=== PATIENT | male | born 1990 | race Caucasian/White ===

== ENCOUNTER 2021-06-08 18:07 | Outpatient (REF) | payer MEDICAID, SELFPAY ==
[2021-06-08 20:17] LABS: HCT 44.8 % (40.0-50.0); HGB 15.7 g/dL (13.5-17.5); MCV 85.7 fL (80-95); MPV 11.8 fL (8.0-11.0); Platelet Count 239 10^3/uL (130-400); RBC 5.23 10^6/uL (4.36-5.78); RDW 11.9 % (11.8-14.1); RDW-SD 37.8 fL; WBC 7.22 10^3/uL (4.4-10.8)
[2021-06-08 20:33] LABS: ALT 46 U/L (16-63); AST 24 U/L (15-37); Albumin 4.3 g/dL (3.4-5.0); Alkaline Phosphatase 107 U/L (46-116); Anion Gap 11.3 mmol/L (3-11); BUN 20 mg/dL (7-18); Bilirubin, Total 1.6 mg/dL (0.2-1.0); CO2 24.7 mmol/L (21.0-32.0); CREATININE 1.2 mg/dL (0.70-1.30); Calcium 9.2 mg/dL (8.5-10.1); Chloride 103 mmol/L (98-107); Glucose 81 mg/dL (74-106); Lipase 59 U/L (73-393); Potassium 4.1 mmol/L (3.5-5.1); Sodium 139 mmol/L (136-145); Total Protein 7.6 g/dL (6.4-8.2)
[2021-06-08 20:46] LABS: Amylase 56 U/L (25-115)
== END 2021-06-08 18:08 | disposition home or self-care (01) ==
LOC: LBN 18:07
PROVIDERS: Visit Provider Nurse Practitioner Family
DX: K21.9 Gastro-esophageal reflux disease without esophagitis (principal); R63.4 Abnormal weight loss
CPT/HCPCS: 80053; 83690; 85027; 82150; 84443

== ENCOUNTER 2021-06-12 13:22 | Outpatient (REF) | payer MEDICAID, SELFPAY ==
[2021-06-14 16:04] LABS: Helicobacter pylori Ag, Feces Negative (Negative)
== END 2021-06-12 13:23 | disposition home or self-care (01) ==
LOC: LBN 13:22
PROVIDERS: Visit Provider Nurse Practitioner Family
DX: K21.9 Gastro-esophageal reflux disease without esophagitis (principal)
CPT/HCPCS: 87338

== ENCOUNTER 2021-07-09 03:18 | Outpatient (CLI) | payer MEDICAID, SELFPAY ==
[2021-07-09 11:40] LABS: Source Nasal/Nares
[2021-07-09 14:14] LABS: COVID-19 PCR Negative (Negative)
== END 2021-07-09 03:19 | disposition home or self-care (01) ==
LOC: LBO 03:18
PROVIDERS: Visit Provider Surgery
DX: Z20.822 Contact with and (suspected) exposure to COVID-19 (principal)
CPT/HCPCS: 87635

== ENCOUNTER 2021-07-12 09:24 | Day surgery (SDC) | payer MEDICAID, SELFPAY ==
--- NOTE | 2021-07-12 07:09 | ENDO_ITS ---
Date of service: 07/12/21 Time of Service: 11:57 Endoscopy Report DATE OF PROCEDURE: 07/12/21 PRE-OP DIAGNOSIS: Abdominal pain POST-OP DIAGNOSIS: other (bile reflux gastritis) PROCEDURE: EGD with biopsies SURGEON: Anitha Rios ANESTHESIA TYPE: General:No Airway ESTIMATED BLOOD LOSS: 2 PATHOLOGY: other (duodenum, gastric and GE junction bx) COMPLICATIONS: None DISPOSITION: same day INDICATIONS: Twan is a pleasant 31-year-old gentleman who started having bloating and indigestion type symptoms after taking antibiotics for an infected tooth.? He also started having some irregular bowel movements with a lot of constipation.? He has been changing his diet a lot going from vegan to more meat again and I think that is part of his constipation issue.? I recommend that he start a probiotic to see if we can get his bowel movements back to normal.? I also recommend an upper endoscopy to look for inflammation, ulcers or H. pylori.? He did say that he had a stool study done looking for H. pylori which was negative .? The procedure was explained in detail as well as the risks and complications.? His questions were answered to his satisfaction and he wished to proceed. Proceed with EGD under sedation FINDINGS: bile reflux and gastritis PROCEDURE DESCRIPTION: After informed consent was obtained the patient was take to the procedure room and placed in a supine position. Monitors were applied and a time out was done. The patients name, date of , procedure type, allergies to medications and metal in their body was reviewed. A bite block was placed and the patient was sedated. Once sedated and comfortable the gastroscope was advanced through the oropharynx which was grossly normal into the esophagus. The proximal and mid- esophagus were normal. In the distal esophagus there was no inflammation noted. The scope was advanced into the stomach and through the pylorus into the 3rd portion of the duodenum. The duodenum was noted to be normal. Biopsies were done to rule out celiac. The scope was retracted back into the stomach and biopsies were done to rule out H. pylori. There were no ulcers. Significant Bile reflux was noted. The scope was retroflexed. The cardia and fundus were noted to be normal. There was no hiatal hernia noted. The scope was retracted back into the esophagus and biopsies were done of the GE junction to rule out Hubbard's. The Z line was regular. The GE junction was at 40 cm. The scope was removed and the patient was woken up and taken back to [facility] in stable condition. Follow up: 2 weeks. Start carafate
--- NOTE | 2021-07-12 07:10 | PDOC.DSDIS_ITS ---
Discharge Plan Disposition Patient Disposition: HOME Condition: Good Discharge Details Reason For Visit: egd Attending Provider: Anitha Rios Primary Care Provider: None,None Home Meds and New Rx's Prescriptions: New sucralfate [Carafate] 1 gram tablet 1 g PO TID 30 Days Qty: 90 0RF Rx Instructions: Take 30 minutes before a meal Discharge Instructions Instructions: Gastritis (DC) Additional Instructions: Findings: inflammation in the stomach Follow up: 2 weeks Please call if you develop: fevers >101.5 Nausea or Vomiting Abdominal pain that is not transient Rectal bleeding that is more then a tbsp A hard abdomen and inability to pass gas DAY SURGERY UNIT POST ENDOSCOPY INSTRUCTIONS Instructions for everyone who is given Anesthesia: For your safety, please do the following for the next 24 Hours: a. Do not drive or operate dangerous equipment b. Do not drink alcohol beverages or use any recreational drugs for the first 24 hours or while taking pain medications. The medications in your body may have a reaction that can be dangerous. c. Do not make any important decisions or sign any important papers 1. Generally there are no restrictions on your activity after a day or so has gone by, but you may feel a bit fatigued for a few days. 2. After you arrive home you may have a light meal and return to a normal diet as you can tolerate it without feeling sick to your stomach. 3. After surgery, you may feel pain or discomfort. This should be only transient, but if it persists please contact your doctor. 4. If there are any questions regarding the findings of your procedure, please feel free to contact your doctor. 6. If you are unable to contact your doctor with a problem, contact the hospital at [phone]. 7. Continue all your regular medications unless directed otherwise. I understand the above instructions and have no questions. Signature of Patient or Responsible Adult Escort Date/Time Name of Responsible Adult Escort Signature of Nurse Date/Time Referrals: Anitha Rios MD [ [facility] STAFF PHYSICIAN] - 07/23/21 9:45 am Activity:: Activity as Tolerated Diet:: As Tolerated Discharge Orders Discharge Orders: Discharge Order (Routine); Ordered 07/12/21 Ordered By: Anitha Rios
[2021-07-12 10:06] VITALS: BP 121/75; PULSE 58; RESP 16; TEMP 36.3; O2SAT 98
[2021-07-12] MEDS: Lactated Ringers 1,000 ML 80 ML IV (10:28)
--- NOTE | 2021-07-12 11:02 | W.ANESPRE ---
General Info Date of Service Date Performed: 07/12/21 Height: 5 ft 10 in Weight: 78.471 kg Body Mass Index (BMI): 24.8 Surgical Procedure: Operation Date: 07/12/21 11:20 Proposed Procedure Side Surgeon p Gastroscopy Anitha Rios MD Meds Allergies and Home Medications Allergies Allergy/AdvReac Type Severity Reaction Status Date / Time Penicillins Allergy Intermediate Other (See Verified 07/08/21 15:29 Comment) Home Medication Medication Instructions Recorded Unknown [No Known Home Meds] 06/08/21 Current Visit Medications: Current Medications Generic Name Dose Route Start Last Admin Trade Name Freq PRN Reason Stop Dose Admin Hyoscyamine Sulfate 0.125 mg 07/12/21 07:11 Hyoscyamine 0.125 Mg Sl/Oral/Chew SL DIRECTED PRN Ringer's Solution 1,000 mls @ 80 mls/hr 07/12/21 06:00 07/12/21 10:28 IV 08/08/21 23:59 80 mls/hr INFUSION IBETH Administration IV Miscellaneous Supplies 1 each 07/12/21 06:00 Iv Access IV 08/08/21 23:59 DIRECTED IBETH Ondansetron HCl 4 mg 07/12/21 07:11 Ondansetron 4 Mg/2 Ml Vial IVP Q4H PRN PRN Nausea / Vomiting Sodium Chloride 0 ml 07/12/21 06:00 Normal Saline Flush 10 Ml Syr IV 08/08/21 23:59 PRN PRN Sodium Chloride 0 ml 07/12/21 06:00 Normal Saline 10 Ml Vial IJ 08/08/21 23:59 DIRECTED PRN Sterile Water 0 ml 07/12/21 06:00 Water,Injection,Sterile 10 Ml Vial IJ 08/08/21 23:59 DIRECTED PRN PFSH Active Problems Active Problems: Problem Status Onset Code Gastroesophageal reflux disease K21.9 Surgical History Surgical History History of ankle surgery No significant past surgical history Tobacco Smoking/Tobacco Use Status: Never Alcohol Alcohol Intake: never Substance Use Substance use: Never Substance use type: does not use Vital Signs and Lab Results Vital Signs Most Recent Vital Signs in EMR: Most Recent Vital Signs Temp Pulse Resp BP Pulse Ox 36.3 C L 58 L 16 121/75 98 07/12/21 10:06 07/12/21 10:06 07/12/21 10:06 07/12/21 10:06 07/12/21 10:06 Lab Results Blood Type / Crossmatch: No Data to Display Complete Blood Count: No Data to Display Complete Metabolic Panel: No Data to Display Liver Function Panel: No Data to Display Coagulation Panel: No Data to Display Cardiac Panel: No Data to Display Arterial Blood Gas: No Data to Display Venous Blood Gas: No Data to Display Pancreas Panel: No Data to Display Thyroid Panel: No Data to Display Infectious Disease: Coronavirus (COVID-19)(PCR) Negative (Negative) 07/09/21 09:17 07/09/21 Coronavirus 2019 Source Nasal/Nares 07/09/21 09:17 07/09/21 Blood Cultures: No Data to Display Toxicology Panel: No Data to Display Anesthesia Assessment and Plan Anesthesia History Personal History: No History of Anesthesia Complications Family History: No Family History of Anesthesia Complications Exercise Tolerance Exercise Tolerance: Metabolic Equivalents>4 Pertinent Negatives Pertinent Negatives: No Symptoms of GERD Cardiac & Pulmonary Exam Cardiac Exam: Normal S1/S2 Heart Sounds Pulmonary Exam: Clear Bilateral Breath Sounds Implantable Cardiac Device Does patient have a Pacemaker or an ICD?: No Airway Exam Known Difficult Airway: No Mallampati Class: 2 Mouth Opening: Normal (> 3cm) Thyromental Distance: Greater than 3 cm Neck Range of Motion: Full ROM Neck Circumference: Normal Teeth Condition: Normal Dentition ASA Classification ASA Score: ASA 2 Emergency Case?: No NPO Status NPO Status: NPO Clears >2 hours, Solids >8 hours Anesthesia Plan Resuscitation Status: Full Code Anesthesia Technique: General Anesthesia Airway Planned: Natural Airway Monitors Used: Standard Monitors
[2021-07-12 11:07] VITALS: BMI 24.8
--- NOTE | 2021-07-12 11:42 | STOM_PTH ---
PATIENT: Twan Aguiar III LOC: [facility] U#:[id number] AGE/SX: 31/M ROOM: RE07/12/[address]: Anitha Rios MD : 1990 BED: DIS: 07/12/2021 SPEC #: [id number] RECD: 07/12/21 13:10 STATUS: MICHELLE REQ #: [id number] PATRICIA: 07/12/21 11:[address]: Anitha Rios DEPT: Surgical Specimen RECD BY: Lena Edwards ENTERED: 07/12/21 13:10 SP TYPE: STOMACH OTHR DR: None Tissues: 1 - BIOPSY BOWEL 2 - STOMACH BIOPSY 3 - ESOPHAGUS BIOPSY Procedures: GROSS AND MICRO LEVEL 4 Comments: [id number]
[2021-07-12 11:55] VITALS: BP 114/63; PULSE 54; RESP 16; TEMP 36.2; O2SAT 96
[2021-07-12 12:22] VITALS: BP 117/72; PULSE 54; RESP 16; TEMP 36.2; O2SAT 100
--- NOTE | 2021-07-12 12:58 | W.ANESPOSTOP ---
Postoperative Evaluation Date, Time and Location Date Performed: 07/12/21 Time Performed: 12:30 Patient Location: Day Surgery Unit Vital Signs Most Recent Imported Vital Signs: Most Recent Vital Signs Temp Pulse Resp BP Pulse Ox 36.2 C L 54 L 16 117/72 100 07/12/21 12:22 07/12/21 12:22 07/12/21 12:22 07/12/21 12:22 07/12/21 12:22 Pain Score Most Recent Pain Score: Most Recent Pain Score Pain Level 0 07/12/21 12:22 Assessment Mental Status: Awake (Alert & Oriented to Patient Baseline) Airway and Respiratory Function: Patent airway with normal (patient baseline) respiratory exam Cardiovascular Function: Hemodynamically Stable Hydration Status: Adequately Hydrated Nausea & Vomiting: No Nausea or Vomiting Pain: Pt. Denies Any Pain Peripheral Nerve Block: Patient did not receive a nerve block
== END 2021-07-12 12:50 | disposition home or self-care (01) ==
LOC: SUR 09:24
PROVIDERS: Visit Provider Surgery
PROC: 0DJ68ZZ Inspection of Stomach, Via Natural or Artificial Opening Endoscopic (ICD-10-PCS; CPT 43235; principal; 2021-07-12 11:15)
DX: R10.9 Unspecified abdominal pain (principal); K29.60 Other gastritis without bleeding; K22.89 Other specified disease of esophagus
CPT/HCPCS: 43239; 88305

== ENCOUNTER 2021-07-29 02:26 | Outpatient (CLI) | payer MEDICAID, SELFPAY ==
[2021-08-02 22:48] LABS: Baker's Yeast, IgE <0.35 kU/L; Banana, IgE <0.35 kU/L; Barley, IgE <0.35 kU/L; Beef IgE <0.35 kU/L; Black/White Pepper IgE <0.35 kU/L; Broccoli IgE <0.35 kU/L; Cacao/Cocoa, IgE <0.35 kU/L; Cinnamon, IgE <0.35 kU/L; Corn-Food IgE <0.35 kU/L; Egg Whole IgE 0.12 kU/L; Milk, IgE <0.35 kU/L; Onion, IgE <0.35 kU/L; Soybean IgE <0.35 kU/L; Strawberry, IgE 0.89 kU/L; White Potato, IgE <0.35 kU/L
== END 2021-07-29 02:27 | disposition home or self-care (01) ==
LOC: LBO 02:26
PROVIDERS: Visit Provider Surgery
DX: J45.909 Unspecified asthma, uncomplicated (principal)
CPT/HCPCS: 36415; 86003